=== PATIENT | male | born 1935 | race Caucasian/White ===

== ENCOUNTER 2016-07-14 08:38 | Inpatient (IN) | payer MEDICARE, OTHER ==
[2016-07-14] MEDS ORDERED: Nitroglycerin 0.4 MG Tab.SL SL PRN (12:52)
[2016-07-14] MEDS ORDERED: oxyCODONE 5 MG Tab PO PRN (12:52)
[2016-07-14] MEDS ORDERED: Benzonatate 100 MG Cap PO PRN (12:52)
[2016-07-14] MEDS ORDERED: Ipratropium 0.03% Nasal Spray 30 ML Bot NASBOTH PRN (12:52)
--- NOTE | 2016-07-14 13:01 | PCM.HP ---
H&P History of Present Illness - General Date of Service: 07/14/16 Admit Problem/Dx: Admission Diagnosis/Problem Admission Diagnosis/Problem Total shoulder replacement Source of Information: Patient History Limitations: Reports: No limitations - History of Present Illness Initial Comments - Free Text/Narative: This is a 80-year-old male patient states he was traveling down south to visit his son in [place]. Groom and he tripped fell and broke his right humerus. He was transferred to [facility]. He had a right shoulder replacement. He was transferred here for PT/OT and strengthening. He has some discomfort in his right shoulder. He has no concerns today. He denies chest pain, shortness of breath. The nurses report that his perineum is erythematous because he has been soiling himself and [place]. He also has bruising down his left side. - Related Data Allergies/Adverse Reactions: Allergies Allergy/AdvReac Type Severity Reaction Status Date / Time cephalexin monohydrate Allergy Edema Verified 01/01/16 15:30 [From Keflex] ciprofloxacin Allergy Edema Verified 01/01/16 15:30 doxycycline Allergy Edema Verified 01/01/16 15:30 doxycycline calcium Allergy Edema Verified 01/01/16 15:30 [From Vibramycin] doxycycline hyclate Allergy Edema Verified 01/01/16 15:30 [From Vibramycin] doxycycline monohydrate Allergy Edema Verified 01/01/16 15:30 [From Vibramycin] oxytetracycline Allergy Edema Verified 01/01/16 15:30 [From Terramycin] oxytetracycline HCl Allergy Edema Verified 01/01/16 15:30 [From Terramycin] Penicillins Allergy Swollen Verified 01/01/16 15:30 Tongue Sulfa (Sulfonamide Allergy Edema Verified 01/01/16 15:30 Antibiotics) tetracycline [Tetracycline] Allergy Cannot Verified 01/01/16 15:30 Remember Home Medications: Home Meds Acetaminophen [Tylenol Extra Strength] 1,000 mg PO TID PRN 01/17/13 [History] Furosemide 40 mg PO BID@08,16 01/17/13 [History] Multivitamin [Daily Multiple Vitamin] 1 tab PO DAILY 01/17/13 [History] Omeprazole [Prilosec] 20 mg PO DAILY@1100 01/17/13 [History] Tamsulosin HCl [Flomax] 0.4 mg PO BEDTIME 01/17/13 [History] Magnesium Oxide [Magnesium] 400 mg PO DAILY 11/09/13 [History] Cholecalciferol (Vitamin D3) [Vitamin D3] 4,000 unit PO DAILY 03/22/14 [History] Citalopram [Citalopram HBr] 20 mg PO QPM 03/22/14 [History] Clopidogrel [Plavix] 75 mg PO DAILY 03/22/14 [History] Fish Oil/[place]-3 Fatty Acids [Fish Oil 1,000 MG] 2,000 mg PO TID@,, [History] Isosorbide Mononitrate [Imdur] 30 mg PO DAILY 03/22/14 [History] Nitroglycerin 0.4 mg PO Q5M PRN 03/22/14 [History] Aspirin [Ecotrin] 81 mg PO DAILY 09/30/14 [History] Benzonatate [Tessalon [place]] 100 mg PO TID PRN 09/30/14 [History] Carvedilol [Coreg] 25 mg PO BID 09/30/14 [History] Mexiletine [Mexitil] 200 mg PO TID@,,01/01/16 [History] Simvastatin [Zocor] 40 mg PO BEDTIME 01/01/16 [History] guaiFENesin/Codeine Phosphate [Codeine-Guaifen 10-100 mg/5 ml] 10 ml PO Q6HR PRN 01/01/16 [History] Cetirizine [ZyrTEC] 10 mg PO BEDTIME 07/14/16 [History] Glimepiride [Amaryl] 1 mg PO DAILY 07/14/16 [History] Ipratropium [Atrovent 0.03% Nasal [place]] 2 spray NASBOTH BID PRN 07/14/16 [ History] Melatonin 3 mg PO BEDTIME 07/14/16 [History] oxyCODONE 5 mg PO Q4H PRN 07/14/16 [History] oxyCODONE 10 mg PO Q4H PRN 07/14/16 [History] Past Medical History HEENT History: Reports: Impaired vision Cardiovascular History: Reports: Bypass, Heart Failure, Stents Psychiatric History: Reports: Depression Endocrine/Metabolic History: Reports: Diabetes, type II Social & Family History - Family History Family Medical History: Noncontributory - Tobacco Use Smoking Status *Q: Former Smoker Years of Tobacco use: 30 Used Tobacco, but Quit: Yes Month Tobacco Last Used: YEARS AGO Second Hand Smoke Exposure: No - Caffeine Use Caffeine Use: Reports: Coffee - Alcohol Use Days Per Week of Alcohol Use: 0 Number of Drinks Per Day: 1 Total Drinks Per Week: 0 - Recreational Drug Use Recreational Drug Use: No H&P Review of Systems - Review of Systems: Review Of Systems: See Below General: Reports: no symptoms HEENT: Reports: no symptoms Pulmonary: Reports: No Symptoms Cardiovascular: Reports: no symptoms Gastrointestinal: Reports: No symptoms Genitourinary: Reports: other (Incontinence) Musculoskeletal: Reports: shoulder pain Psychiatric: Reports: no symptoms Neurological: Reports: No Symptoms Hematologic/Lymphatic: Reports: no symptoms Immunologic: Reports: no symptoms Exam - Exam Exam: See Below - Vital Signs Weight: 247 lb - Exam General: alert, oriented, cooperative HEENT: Hearing intact, Mucosa moist & pink, Posterior pharynx clear, Pupils equal, Pupils reactive, TMs clear Neck: supple, trachea midline Lungs: Clear to auscultation, Normal respiratory effort. No: Crackles, Rales, Rhonchi Cardiovascular: regular rate, regular rhythm, normal S1, normal S2. No: systolic murmur, diastolic murmur Abdomen: normal bowel sounds, soft. No: organomegaly, guarding, rigidity, rebound, tenderness Back Exam: normal inspection, full range of motion Extremities: other (Right shoulder is wrapped up and in a sling.) Skin: ecchymosis (Ecchymosis left abdomen and left leg) Neurological: normal speech, normal tone Neuro Extensive - Mental Status: alert, oriented x3, normal cognition Psychiatric: alert *Q Meaningful Use (ADM) - VTE *Q VTE Criteria *Q: - Stroke *Q Stroke Criteria *Q: - AMI *Q AMI Criteria *Q: - Problem List (1) Shoulder joint replacement status SNOMED Code(s): 646586447, 095044076 ICD Code: Z96.619 - PRESENCE OF UNSPECIFIED ARTIFICIAL SHOULDER JOINT Status: Acute Current Visit: Yes Problem List Initiated/Reviewed/Updated: Yes Orders Last 24hrs: Active Orders 24 hr Category Date Time Status Admission Status [Patient Status] [ADT] Routine ADT 07/14/16 11:10 Active Patient Status [ADT] Routine ADT 07/14/16 12:50 Ordered Accu Check [Blood Glucose Check, Bedside] [RC] BIDMEALS Care 07/14/16 12:55 Ordered Ambulate [RC] ASDIRECTED Care 07/14/16 12:50 Ordered May Shower [RC] ASDIRECTED Care 07/14/16 12:50 Ordered Oxygen Therapy [RC] PRN Care 07/14/16 12:50 Ordered Up With Assistance [RC] ASDIRECTED Care 07/14/16 12:50 Ordered Up to Chair [RC] ASDIRECTED Care 07/14/16 12:50 Ordered VTE/DVT Education [RC] Per Unit Routine Care 07/14/16 12:50 Ordered Vital Signs [RC] PER UNIT ROUTINE Care 07/14/16 12:50 Ordered OT Evaluation and Treatment [CONS] Routine Cons 07/14/16 12:50 Ordered PT Evaluation and Treatment [CONS] Routine Cons 07/14/16 12:50 Ordered Consistent Carbohydrate Diet [DIET] Diet 07/14/16 Dinner Ordered Acetaminophen [Tylenol Extra Strength] Med 07/14/16 12:52 Ordered 1,000 mg PO TID PRN Aspirin [Halfprin] Med 07/15/16 09:00 Ordered 81 mg PO DAILY Benzonatate [Tessalon Perles] Med 07/14/16 12:52 Ordered 100 mg PO TID PRN Carvedilol [Coreg] Med 07/14/16 21:00 Ordered 25 mg PO BID Cetirizine [ZyrTEC] Med 07/14/16 21:00 Ordered 10 mg PO BEDTIME Citalopram [Celexa] Med 07/14/16 17:00 Ordered 20 mg PO QPM Clopidogrel [Plavix] Med 07/15/16 09:00 Ordered 75 mg PO DAILY Fish Oil/[place]-3 Fatty Acids [Fish Oil] Med 07/14/16 16:00 Ordered 2 gm PO TID@08,16,21 Furosemide [Lasix] Med 07/14/16 16:00 Ordered 40 mg PO BID@08,16 Glimepiride [Amaryl] Med 07/15/16 09:00 Ordered 1 mg PO DAILY Ipratropium [Atrovent 0.03% Nasal [place]] Med 07/14/16 12:52 Ordered 2 spray NASBOTH BID PRN Isosorbide Mononitrate [Imdur] Med 07/15/16 09:00 Ordered 30 mg PO DAILY Magnesium Oxide [Magnesium] Med 07/15/16 09:00 Ordered 400 mg PO DAILY Melatonin Med 07/14/16 21:00 Ordered 3 mg PO BEDTIME Mexiletine [Mexiletine] Med 07/14/16 16:00 Ordered 200 mg PO TID@,,21 Multivitamins [Tab-A-Shelia] Med 07/15/16 09:00 Ordered 1 tab PO DAILY Nitroglycerin [Nitrostat] Med 07/14/16 12:52 Ordered 0.4 mg SL Q5M PRN Omeprazole Med 07/15/16 11:00 Ordered 20 mg PO DAILY@1100 Simvastatin [Zocor] Med 07/14/16 21:00 Ordered 40 mg PO BEDTIME Tamsulosin [Flomax] Med 07/14/16 21:00 Ordered 0.4 mg PO BEDTIME guaiFENesin/Codeine Phosphate [Codeine-Guaifen 10-100 Med 07/14/16 12:52 Ordered mg/5 ml] 10 ml PO Q6HR PRN oxyCODONE Med 07/14/16 12:52 Ordered 10 mg PO Q4H PRN oxyCODONE Med 07/14/16 12:52 Ordered 5 mg PO Q4H PRN Resuscitation Status Routine Resus Stat 07/14/16 12:50 Ordered Medication Orders Acetaminophen (Tylenol Extra Strength) 1,000 mg PO TID PRN PRN Reason: PAIN Aspirin (Halfprin) 81 mg PO DAILY [facility] Benzonatate (Tessalon Perles) 100 mg PO TID PRN PRN Reason: Cough Carvedilol (Coreg) 25 mg PO BID [facility] Cetirizine HCl (Zyrtec) 10 mg PO BEDTIME [facility] Citalopram Hydrobromide (Celexa) 20 mg PO QPM [facility] Clopidogrel Bisulfate (Plavix) 75 mg PO DAILY [facility] Fish Oil (Fish Oil) 2 gm PO TID@,,21 [facility] Furosemide (Lasix) 40 mg PO BID@,16 [facility] Glimepiride (Amaryl) 1 mg PO DAILY [facility] Ipratropium [place] (Atrovent 0.03% Nasal [place]) ml NASBOTH BID PRN PRN Reason: Rhinitis Isosorbide Mononitrate (Imdur) 30 mg PO DAILY [facility] Melatonin (Melatonin) 3 mg PO BEDTIME [facility] Multivitamins/Minerals/Vitamin C (Tab-A-Shelia) 1 tab PO DAILY [facility] Nitroglycerin (Nitrostat) 0.4 mg SL Q5M PRN PRN Reason: Chest Pain Non-Formulary Medication (Magnesium Oxide [Magnesium]) 400 mg PO DAILY [facility] Non-Formulary Medication (Mexiletine [Mexiletine]) 200 mg PO TID@08,16,21 [facility] Non-Formulary Medication (Guaifenesin/Codeine Phosphate [Codeine-Guaifen 10-100 Mg/5 Ml]) 10 ml PO Q6HR PRN PRN Reason: Cough Omeprazole (Omeprazole) 20 mg PO DAILY@1100 [facility] Oxycodone HCl (Oxycodone) 5 mg PO Q4H PRN PRN Reason: MODERATE PAIN Oxycodone HCl (Oxycodone) 10 mg PO Q4H PRN PRN Reason: SEVERE PAIN Simvastatin (Zocor) 40 mg PO BEDTIME [facility] Tamsulosin HCl (Flomax) 0.4 mg PO BEDTIME [facility] Assessment/Plan Comment:: 1. Admit to swing bed. 2. Continue his current medication. 3. Discussed CODE STATUS. He was to be a DO NOT RESUSCITATE/DO NOT INTUBATE. 4. PT/OT. See swing bed orders.
[2016-07-14] MEDS ORDERED: Codeine/guaiFENesin 100-10 MG/5 ML Syrup 5 ML Cup PO PRN (13:39)
[2016-07-14] MEDS: oxyCODONE 5 MG Tab PO PRN (13:46)
[2016-07-14] MEDS: Fish Oil/Omega-3 Fatty Acids 1 Gm Cap PO SCH ×2 (16:01→20:31)
[2016-07-14] MEDS: Furosemide 40 MG Tab PO SCH (16:02)
[2016-07-14] MEDS: MEXILETINE 200 MG PO SCH ×2 (16:02→20:32)
[2016-07-14] MEDS: Carvedilol 25 MG Tab PO SCH (20:27)
[2016-07-14] MEDS: Melatonin 3 MG Tab PO SCH (20:31)
[2016-07-14] MEDS: Simvastatin 40 MG Tab PO SCH (20:32)
[2016-07-15] MEDS: oxyCODONE 5 MG Tab PO PRN (00:14)
[2016-07-15] MEDS: Omeprazole 20 MG Cap.CR PO SCH (07:03)
[2016-07-15] MEDS: Multivitamin Tab PO SCH (08:07)
[2016-07-15] MEDS: Clopidogrel 75 MG Tab PO SCH (08:07)
[2016-07-15] MEDS: MEXILETINE 200 MG PO SCH ×2 (08:07→16:43)
[2016-07-15] MEDS: Furosemide 40 MG Tab PO SCH ×2 (08:08→16:42)
[2016-07-15] MEDS: Magnesium Oxide 400 MG Tab PO SCH (08:08)
[2016-07-15] MEDS: Isosorbide Mononitrate 30 MG Tab.ER PO SCH (08:09)
[2016-07-15] MEDS: Fish Oil/Omega-3 Fatty Acids 1 Gm Cap PO SCH ×3 (08:09→21:45)
[2016-07-15] MEDS: Carvedilol 25 MG Tab PO SCH ×2 (08:10→21:44)
[2016-07-15] MEDS: Glimepiride 2 MG Tab PO SCH (08:10)
[2016-07-15] MEDS: Aspirin 81 MG Tab.EC PO SCH (08:11)
[2016-07-15] MEDS: Acetaminophen/HYDROcodone 325-10 MG Tab PO PRN ×2 (13:21→21:46)
[2016-07-15] MEDS: Citalopram 20 MG Tab PO SCH (16:42)
[2016-07-15] MEDS: Tamsulosin 0.4 MG Cap.ER PO SCH (21:45)
[2016-07-15] MEDS: Melatonin 3 MG Tab PO SCH (21:46)
[2016-07-15] MEDS: Simvastatin 40 MG Tab PO SCH (21:46)
[2016-07-16] MEDS: oxyCODONE 5 MG Tab PO PRN ×2 (00:21→05:52)
[2016-07-16] MEDS: Omeprazole 20 MG Cap.CR PO SCH (05:52)
[2016-07-16] MEDS: Acetaminophen 500 MG Tab PO PRN ×2 (08:16→16:41)
[2016-07-16] MEDS: Carvedilol 25 MG Tab PO SCH ×2 (08:17→20:12)
[2016-07-16] MEDS: Glimepiride 2 MG Tab PO SCH (08:17)
[2016-07-16] MEDS: Aspirin 81 MG Tab.EC PO SCH (08:18)
[2016-07-16] MEDS: Isosorbide Mononitrate 30 MG Tab.ER PO SCH (08:18)
[2016-07-16] MEDS: Fish Oil/Omega-3 Fatty Acids 1 Gm Cap PO SCH ×3 (08:18→20:13)
[2016-07-16] MEDS: Clopidogrel 75 MG Tab PO SCH (08:19)
[2016-07-16] MEDS: Magnesium Oxide 400 MG Tab PO SCH (08:19)
[2016-07-16] MEDS: Furosemide 40 MG Tab PO SCH ×2 (08:19→16:05)
[2016-07-16] MEDS: Multivitamin Tab PO SCH (08:20)
[2016-07-16] MEDS: traMADol 50 MG Tab PO PRN ×2 (09:42→19:48)
--- NOTE | 2016-07-16 12:33 | CR ---
INDICATION: Left knee pain and swelling. Bruising after a fall. LEFT KNEE: Frontal and lateral views of the left knee were obtained, revealing marked soft tissue swelling anterior to the patella. A hematoma is possible in that area. Degenerative changes are noted at the patellofemoral and femorotibial joint spaces with hypertrophic lipping at the intercondylar spines, intercondylar notch, and laterally and medially off the femur and tibia. Moderately severe loss of medial femorotibial joint space is noted medially. A definite joint effusion was not seen. A definite fracture or dislocation was not seen. IMPRESSION: 1. Osteoarthritis. 2. Possible hematoma anterior to the patella with fairly marked soft tissue swelling in that area. This could be confirmed by ultrasound as necessary. MTDD
--- NOTE | 2016-07-16 12:53 | PN ---
DATE SEEN: 07/16/2016 SUBJECTIVE: This is an 81-year-old male with a previous historyof right humerus fracture and resultant right shoulder replacement after a fall, coronary artery disease with previous coronary artery stenting, complicated by cardiomyopathy with pacemaker and implantable defibrillator placement, obstructive sleep apnea, hypertension, obesity, and type 2 diabetes. He is seen today for followup. He was admitted as a transfer from [facility] on 07/14/2016 for continued rehab and strengthening. Today, he was seen and complains of significant left knee and leg pain. He is also complaining of increased numbness of his right upper extremity. He has had no fever, no chills. He denies any cough, hemoptysis, nausea, vomiting, or diarrhea. They have had difficulty with his pain medications. His appetite has been poor with the narcotics. He was quite sedated with the oxycodone. He has been switched to hydrocodone when he says it has offered only minimal pain relief, and he was wondering if he could get something else. He denies any abdominal discomfort or constipation. He has had no dysuria or hematuria. MEDICATIONS: Reviewed, all of which were accurate. ALLERGIES: Reviewed, all of which were accurate. OBJECTIVE: GENERAL: He appears to be in no acute distress. VITAL SIGNS: Blood pressure 113/52, pulse is 60 and regular, respirations are 20, O2 saturation on room air is 97%. HEENT: Exam was unremarkable, although, he appears somewhat pale. NECK: There is no jugular venous distention. CHEST: Revealed no wheezes, rales, or rhonchi. CARDIOVASCULAR: Revealed a regular rhythm without murmur, rub, or gallop. ABDOMEN: Quite obese, but otherwise unremarkable. EXTREMITIES: The patient's right upper extremity is in a sling. He has significant edema of his right hand. He says he can feel the top of his hand, but it does feel numb. He is unable to extend his fingers on the right hand and is unable to extend his wrist. I asked him if this is new, and he says there was some weakness before, but he says now he is unable to move it. He has significant ecchymosis in the lateral aspect of the left leg with significant swelling in the prepatellar area of the left knee. Ecchymosis was noted there also. There is no calf tenderness and peripheral pulses were present and equal bilaterally. No ulcerations or areas of breakdown were identified. IMPRESSION: 1. Status post right humerus fracture with resultant open reduction and internal fixation of the right humerus. 2. History of type 2 diabetes mellitus. His fasting sugars have been under fair control. 3. Arteriosclerotic heart disease with previous history of coronary artery stenting, cardiomyopathy, and implantable defibrillator placement. 4. History of obstructive sleep apnea with obesity. 5. Left knee swelling with evidence of significant contusion and possible prepatellar bursitis. PLAN: We will obtain a CBC and panel-8 today. I would like to get x-rays of his left knee. I talked to the orthopedic surgeon regarding the possible evidence of a radial nerve compression and neuropathy possibly secondary to his surgery. At this point, watchful waiting was recommended. We will continue to monitor his blood sugars and depending on the results, we will proceed from there. /[id number] /ADRIAN
[2016-07-16] MEDS: Citalopram 20 MG Tab PO SCH (16:05)
[2016-07-16] MEDS: Docusate Sodium 100 MG Cap PO SCH (20:12)
[2016-07-16] MEDS: Tamsulosin 0.4 MG Cap.ER PO SCH (20:13)
[2016-07-16] MEDS: Melatonin 3 MG Tab PO SCH (20:14)
[2016-07-16] MEDS: Simvastatin 40 MG Tab PO SCH (20:14)
[2016-07-17] MEDS: traMADol 50 MG Tab PO PRN ×3 (02:00→12:33)
[2016-07-17] MEDS: Omeprazole 20 MG Cap.CR PO SCH (06:15)
[2016-07-17] MEDS: Glimepiride 2 MG Tab PO SCH (08:18)
[2016-07-17] MEDS: Carvedilol 25 MG Tab PO SCH ×2 (08:18→20:35)
[2016-07-17] MEDS: Docusate Sodium 100 MG Cap PO SCH ×2 (08:18→20:35)
[2016-07-17] MEDS: Aspirin 81 MG Tab.EC PO SCH (08:19)
[2016-07-17] MEDS: Isosorbide Mononitrate 30 MG Tab.ER PO SCH (08:19)
[2016-07-17] MEDS: Fish Oil/Omega-3 Fatty Acids 1 Gm Cap PO SCH ×3 (08:19→20:36)
[2016-07-17] MEDS: Multivitamin Tab PO SCH (08:20)
[2016-07-17] MEDS: Furosemide 40 MG Tab PO SCH ×2 (08:20→15:56)
[2016-07-17] MEDS: Clopidogrel 75 MG Tab PO SCH (08:20)
[2016-07-17] MEDS: Magnesium Oxide 400 MG Tab PO SCH (08:20)
--- NOTE | 2016-07-17 11:48 | PN ---
DATE SEEN: 07/17/2016 SUBJECTIVE: This 81-year-old gentleman is seen today for a followup of his right humerus fracture and contusion with prepatellar bursitis of the left leg and knee. X-rays done yesterday were negative for fracture and he switched his pain medicine over to tramadol. This apparently has been working very well. He has had no excessive sedation, denies any nausea, and he says he is getting good pain relief along with use of the Tylenol. His other medications were reviewed. ALLERGIES: Reviewed. OBJECTIVE: GENERAL: He is quite comfortable after his shower, no acute distress. VITAL SIGNS: Afebrile. Blood pressure 121/51, pulse is 60 and regular. HEENT: Unremarkable, although he is slightly pale. NECK: There is no jugular venous distention. CHEST: Clear. CARDIOVASCULAR: Revealed a normal S1 and S2 without murmur, rub, or gallop. ABDOMEN: Unremarkable except for obesity. EXTREMITIES: Unchanged. He still has some edema of his hand, although it is slightly improved. He still is unable to extend his wrist beyond neutral and has difficulty extending his fingers. There is a slight amount of decreased sensation over the dorsum of his forearm and hand. The swelling and ecchymosis along the prepatellar bursa of the left knee is unchanged maybe it is down just a slight amount. The tenderness seems to have improved and we are using an Jay wrap on this area. IMPRESSION: 1. Status post open reduction and internal fixation of the right humerus fracture after he had had a previous right total shoulder arthroplasty. 2. Contusion with prepatellar bursitis of the left knee. No evidence of fracture. 3. Type 2 diabetes mellitus. 4. Arteriosclerotic heart disease with previous history of cardiomyopathy and implantable defibrillator placement. 5. History of obstructive sleep apnea, currently on his CPAP. 6. Postoperative anemia with a hemoglobin of 10.1, currently doing fairly well. PLAN: At this point, I have recommended no changes. We will continue his current medications, encourage oral fluids, having continue the tramadol, use the Jay wrap for the leg, and increase his activity. I talked to Orthopedics about the possible radial neuropathy on the right arm. They said wait and watch and see if it does not improve. We will continue to monitor and address other difficulties as needed. /[id number] /ADRIAN
[2016-07-17] MEDS: Acetaminophen 500 MG Tab PO PRN (15:25)
[2016-07-17] MEDS: Citalopram 20 MG Tab PO SCH (15:56)
[2016-07-17] MEDS: Tamsulosin 0.4 MG Cap.ER PO SCH (20:36)
[2016-07-17] MEDS: Melatonin 3 MG Tab PO SCH (20:37)
[2016-07-17] MEDS: Simvastatin 40 MG Tab PO SCH (20:38)
[2016-07-18] MEDS: traMADol 50 MG Tab PO PRN ×5 (00:18→21:02)
[2016-07-18] MEDS: Omeprazole 20 MG Cap.CR PO SCH (05:45)
[2016-07-18] MEDS: Carvedilol 25 MG Tab PO SCH ×2 (08:41→20:38)
[2016-07-18] MEDS: Glimepiride 2 MG Tab PO SCH (08:41)
[2016-07-18] MEDS: Docusate Sodium 100 MG Cap PO SCH ×2 (08:41→20:36)
[2016-07-18] MEDS: Fish Oil/Omega-3 Fatty Acids 1 Gm Cap PO SCH ×3 (08:42→20:33)
[2016-07-18] MEDS: Aspirin 81 MG Tab.EC PO SCH (08:42)
[2016-07-18] MEDS: Isosorbide Mononitrate 30 MG Tab.ER PO SCH (08:42)
[2016-07-18] MEDS: Furosemide 40 MG Tab PO SCH ×2 (08:42→16:33)
[2016-07-18] MEDS: Clopidogrel 75 MG Tab PO SCH (08:43)
[2016-07-18] MEDS: Magnesium Oxide 400 MG Tab PO SCH (08:43)
[2016-07-18] MEDS: Multivitamin Tab PO SCH (08:43)
[2016-07-18] MEDS: Citalopram 20 MG Tab PO SCH (16:33)
[2016-07-18] MEDS: Simvastatin 40 MG Tab PO SCH (20:37)
[2016-07-18] MEDS: Tamsulosin 0.4 MG Cap.ER PO SCH (20:37)
[2016-07-18] MEDS: Melatonin 3 MG Tab PO SCH (20:38)
[2016-07-19] MEDS: Omeprazole 20 MG Cap.CR PO SCH (06:17)
[2016-07-19] MEDS: traMADol 50 MG Tab PO PRN (06:17)
[2016-07-19] MEDS: Glimepiride 2 MG Tab PO SCH (09:07)
[2016-07-19] MEDS: Docusate Sodium 100 MG Cap PO SCH ×2 (09:07→20:59)
[2016-07-19] MEDS: Carvedilol 25 MG Tab PO SCH ×2 (09:08→20:59)
[2016-07-19] MEDS: Aspirin 81 MG Tab.EC PO SCH (09:09)
[2016-07-19] MEDS: Isosorbide Mononitrate 30 MG Tab.ER PO SCH (09:09)
[2016-07-19] MEDS: Fish Oil/Omega-3 Fatty Acids 1 Gm Cap PO SCH ×3 (09:09→21:00)
[2016-07-19] MEDS: Furosemide 40 MG Tab PO SCH ×2 (09:10→15:49)
[2016-07-19] MEDS: Magnesium Oxide 400 MG Tab PO SCH (09:10)
[2016-07-19] MEDS: Clopidogrel 75 MG Tab PO SCH (09:11)
[2016-07-19] MEDS: Multivitamin Tab PO SCH (09:11)
[2016-07-19] MEDS: Citalopram 20 MG Tab PO SCH (15:48)
[2016-07-19] MEDS: Tamsulosin 0.4 MG Cap.ER PO SCH (20:59)
[2016-07-19] MEDS: Acetaminophen 500 MG Tab PO PRN (21:00)
[2016-07-19] MEDS: Melatonin 3 MG Tab PO SCH (21:00)
[2016-07-19] MEDS: Simvastatin 40 MG Tab PO SCH (21:00)
[2016-07-20] MEDS: Omeprazole 20 MG Cap.CR PO SCH (06:06)
[2016-07-20] MEDS: Glimepiride 2 MG Tab PO SCH (08:07)
[2016-07-20] MEDS: Docusate Sodium 100 MG Cap PO SCH ×2 (08:08→20:36)
[2016-07-20] MEDS: Carvedilol 25 MG Tab PO SCH ×2 (08:08→20:36)
[2016-07-20] MEDS: Fish Oil/Omega-3 Fatty Acids 1 Gm Cap PO SCH ×3 (08:09→20:36)
[2016-07-20] MEDS: Isosorbide Mononitrate 30 MG Tab.ER PO SCH (08:09)
[2016-07-20] MEDS: Aspirin 81 MG Tab.EC PO SCH (08:09)
[2016-07-20] MEDS: Furosemide 40 MG Tab PO SCH ×2 (08:10→16:42)
[2016-07-20] MEDS: Magnesium Oxide 400 MG Tab PO SCH (08:10)
[2016-07-20] MEDS: Clopidogrel 75 MG Tab PO SCH (08:11)
[2016-07-20] MEDS: Multivitamin Tab PO SCH (08:11)
[2016-07-20] MEDS: Citalopram 20 MG Tab PO SCH (16:42)
[2016-07-20] MEDS: Melatonin 3 MG Tab PO SCH (20:37)
[2016-07-20] MEDS: Simvastatin 40 MG Tab PO SCH (20:37)
[2016-07-20] MEDS: Tamsulosin 0.4 MG Cap.ER PO SCH (20:37)
[2016-07-20] MEDS: Acetaminophen 500 MG Tab PO PRN (22:55)
[2016-07-21] MEDS: Cetirizine 10 MG Tab PO PRN (01:19)
[2016-07-21] MEDS: Omeprazole 20 MG Cap.CR PO SCH (07:08)
[2016-07-21] MEDS: Glimepiride 2 MG Tab PO SCH (09:26)
[2016-07-21] MEDS: Docusate Sodium 100 MG Cap PO SCH ×2 (09:27→20:54)
[2016-07-21] MEDS: Carvedilol 25 MG Tab PO SCH ×2 (09:27→20:54)
[2016-07-21] MEDS: Fish Oil/Omega-3 Fatty Acids 1 Gm Cap PO SCH ×3 (09:28→20:55)
[2016-07-21] MEDS: Isosorbide Mononitrate 30 MG Tab.ER PO SCH (09:28)
[2016-07-21] MEDS: Aspirin 81 MG Tab.EC PO SCH (09:28)
[2016-07-21] MEDS: Furosemide 40 MG Tab PO SCH ×2 (09:29→17:01)
[2016-07-21] MEDS: Magnesium Oxide 400 MG Tab PO SCH (09:30)
[2016-07-21] MEDS: Clopidogrel 75 MG Tab PO SCH (09:30)
[2016-07-21] MEDS: Multivitamin Tab PO SCH (09:31)
[2016-07-21] MEDS ORDERED: Polyethylene Glycol 3350 Powder 17 GM Packet PO PRN (10:40)
[2016-07-21] MEDS: Acetaminophen 500 MG Tab PO PRN (12:12)
[2016-07-21] MEDS: Citalopram 20 MG Tab PO SCH (17:02)
--- NOTE | 2016-07-21 18:32 | CONS ---
DATE OF CONSULTATION: 07/21/2016 PROBLEM: Status post open reduction and internal fixation of right humeral shaft fracture. HISTORY OF PRESENT ILLNESS: This gentleman's family asked if I would follow him postop after his surgery in [place] at [facility]. I agreed to follow him and since he has been transferred to [facility] for postop recovery, I visited with him today. This gentleman had a fall on his right upper extremity. The patient also has a history of right total shoulder arthroplasty. The patient's fracture occurred distal to the humeral implant and therefore, his surgeon recommended open reduction and internal fixation with plating (operative report reveals no complications). In visiting with Dr. Fine the other day, was noted this gentleman had a radial nerve palsy. We discussed the radial nerve palsy and it was my conclusion to wait for at least 12 weeks before doing any nerve conduction velocity studies and continue observation as the radial nerve is very sensitive and sometimes retraction during surgery can produce a problem. If there is no improvement within 12 weeks, then the exploration of the fracture site and radial nerve should be carried out. It should be noted that, in visiting with the patient today, he states he was able to dorsiflex his wrist and extend his fingers prior to surgery. The gentleman states he was having moderate to significant pain at times in the shoulder and mid shaft to the humerus, otherwise no real problems. Objectively, today the incision is healing nicely. There is no significant drainage. There is no erythema. No evidence of infection. He has a good radial pulse and light touch sensation is intact and equal in all dermatomal areas including the superficial radial nerve. DIAGNOSTIC STUDIES: I reviewed his x-rays today and there was excellent alignment and fixation present. ASSESSMENT: 1. Status post closed humeral shaft fracture with concomitant shoulder arthroplasty. 2. Radial nerve neurapraxia. PLAN: Continue observation and conservative care for pain. I have visited with therapy to do some electrical stim a couple of times a week and to fit him with a radial nerve palsy wrist splint, so that he does not develop contractures in his wrist. We will visit again on Tuesday with the patient if he is still hospitalized, otherwise I will see him back in the clinic when he is convenient for him. /[id number] JANET/ADRIAN
[2016-07-21] MEDS: Tamsulosin 0.4 MG Cap.ER PO SCH (20:55)
[2016-07-21] MEDS: Melatonin 3 MG Tab PO SCH (20:56)
[2016-07-21] MEDS: Simvastatin 40 MG Tab PO SCH (20:57)
[2016-07-21] MEDS: traMADol 50 MG Tab PO PRN (20:58)
[2016-07-21] MEDS: Aluminum Hydroxide/Magnesium Hydroxide Susp 30 ML Cup PO PRN (21:31)
[2016-07-22] MEDS: Acetaminophen 500 MG Tab PO PRN ×3 (00:55→20:42)
[2016-07-22] MEDS: Cetirizine 10 MG Tab PO PRN ×2 (00:56→20:43)
[2016-07-22] MEDS: Omeprazole 20 MG Cap.CR PO SCH (07:00)
[2016-07-22] MEDS: Glimepiride 2 MG Tab PO SCH (09:02)
[2016-07-22] MEDS: Docusate Sodium 100 MG Cap PO SCH ×2 (09:03→20:39)
[2016-07-22] MEDS: Carvedilol 25 MG Tab PO SCH ×2 (09:03→20:40)
[2016-07-22] MEDS: Isosorbide Mononitrate 30 MG Tab.ER PO SCH (09:04)
[2016-07-22] MEDS: Fish Oil/Omega-3 Fatty Acids 1 Gm Cap PO SCH ×3 (09:04→20:40)
[2016-07-22] MEDS: Furosemide 40 MG Tab PO SCH ×2 (09:04→16:06)
[2016-07-22] MEDS: Aspirin 81 MG Tab.EC PO SCH (09:04)
[2016-07-22] MEDS: Magnesium Oxide 400 MG Tab PO SCH (09:05)
[2016-07-22] MEDS: Clopidogrel 75 MG Tab PO SCH (09:05)
[2016-07-22] MEDS: Multivitamin Tab PO SCH (09:05)
[2016-07-22] MEDS: traMADol 50 MG Tab PO PRN ×2 (09:12→14:38)
[2016-07-22] MEDS: Gabapentin 100 MG Cap PO SCH ×3 (12:47→20:42)
[2016-07-22] MEDS: Citalopram 20 MG Tab PO SCH (16:05)
[2016-07-22] MEDS: Tamsulosin 0.4 MG Cap.ER PO SCH (20:41)
[2016-07-22] MEDS: Melatonin 3 MG Tab PO SCH (20:41)
[2016-07-22] MEDS: Simvastatin 40 MG Tab PO SCH (20:42)
[2016-07-23] MEDS: Omeprazole 20 MG Cap.CR PO SCH (06:32)
[2016-07-23] MEDS: Fish Oil/Omega-3 Fatty Acids 1 Gm Cap PO SCH ×3 (08:55→21:13)
[2016-07-23] MEDS: Isosorbide Mononitrate 30 MG Tab.ER PO SCH (08:55)
[2016-07-23] MEDS: Glimepiride 2 MG Tab PO SCH (08:55)
[2016-07-23] MEDS: Docusate Sodium 100 MG Cap PO SCH ×2 (08:55→21:13)
[2016-07-23] MEDS: Aspirin 81 MG Tab.EC PO SCH (08:55)
[2016-07-23] MEDS: Carvedilol 25 MG Tab PO SCH ×2 (08:55→21:13)
[2016-07-23] MEDS: Furosemide 40 MG Tab PO SCH ×2 (08:56→16:37)
[2016-07-23] MEDS: Clopidogrel 75 MG Tab PO SCH (08:56)
[2016-07-23] MEDS: Gabapentin 100 MG Cap PO SCH ×3 (08:56→21:00)
[2016-07-23] MEDS: Multivitamin Tab PO SCH (08:56)
[2016-07-23] MEDS: Magnesium Oxide 400 MG Tab PO SCH (08:56)
[2016-07-23] MEDS: traMADol 50 MG Tab PO PRN (14:36)
[2016-07-23] MEDS: Citalopram 20 MG Tab PO SCH (16:37)
[2016-07-23] MEDS: Melatonin 3 MG Tab PO SCH (21:13)
[2016-07-23] MEDS: Tamsulosin 0.4 MG Cap.ER PO SCH (21:13)
[2016-07-23] MEDS: Simvastatin 40 MG Tab PO SCH (21:14)
[2016-07-24] MEDS: Gabapentin 100 MG Cap PO SCH ×4 (06:22→21:17)
[2016-07-24] MEDS: Omeprazole 20 MG Cap.CR PO SCH (06:26)
[2016-07-24] MEDS: Carvedilol 25 MG Tab PO SCH ×2 (08:17→21:17)
[2016-07-24] MEDS: Docusate Sodium 100 MG Cap PO SCH ×2 (08:17→21:46)
[2016-07-24] MEDS: Glimepiride 2 MG Tab PO SCH (08:17)
[2016-07-24] MEDS: Aspirin 81 MG Tab.EC PO SCH (08:18)
[2016-07-24] MEDS: Fish Oil/Omega-3 Fatty Acids 1 Gm Cap PO SCH ×3 (08:18→21:17)
[2016-07-24] MEDS: Isosorbide Mononitrate 30 MG Tab.ER PO SCH (08:18)
[2016-07-24] MEDS: Furosemide 40 MG Tab PO SCH ×2 (08:19→15:58)
[2016-07-24] MEDS: Clopidogrel 75 MG Tab PO SCH (08:19)
[2016-07-24] MEDS: Multivitamin Tab PO SCH (08:19)
[2016-07-24] MEDS: Magnesium Oxide 400 MG Tab PO SCH (08:19)
[2016-07-24] MEDS: traMADol 50 MG Tab PO PRN ×2 (12:40→21:18)
[2016-07-24] MEDS: Citalopram 20 MG Tab PO SCH (15:59)
[2016-07-24] MEDS: Acetaminophen 500 MG Tab PO PRN (16:03)
[2016-07-24] MEDS: Tamsulosin 0.4 MG Cap.ER PO SCH (21:17)
[2016-07-24] MEDS: Melatonin 3 MG Tab PO SCH (21:17)
[2016-07-24] MEDS: Simvastatin 40 MG Tab PO SCH (21:18)
[2016-07-25] MEDS: Cetirizine 10 MG Tab PO PRN (00:38)
[2016-07-25] MEDS: Omeprazole 20 MG Cap.CR PO SCH (06:08)
[2016-07-25] MEDS: Furosemide 40 MG Tab PO SCH ×2 (09:55→15:20)
[2016-07-25] MEDS: Carvedilol 25 MG Tab PO SCH ×2 (09:55→21:04)
[2016-07-25] MEDS: Gabapentin 100 MG Cap PO SCH ×3 (09:55→21:08)
[2016-07-25] MEDS: Multivitamin Tab PO SCH (09:55)
[2016-07-25] MEDS: Clopidogrel 75 MG Tab PO SCH (09:55)
[2016-07-25] MEDS: Magnesium Oxide 400 MG Tab PO SCH (09:55)
[2016-07-25] MEDS: Glimepiride 2 MG Tab PO SCH (09:56)
[2016-07-25] MEDS: Isosorbide Mononitrate 30 MG Tab.ER PO SCH (09:56)
[2016-07-25] MEDS: Docusate Sodium 100 MG Cap PO SCH ×2 (09:56→21:04)
[2016-07-25] MEDS: Aspirin 81 MG Tab.EC PO SCH (09:56)
[2016-07-25] MEDS: Fish Oil/Omega-3 Fatty Acids 1 Gm Cap PO SCH ×3 (10:03→21:07)
[2016-07-25] MEDS: traMADol 50 MG Tab PO PRN (11:51)
[2016-07-25] MEDS: Acetaminophen 500 MG Tab PO PRN (15:19)
[2016-07-25] MEDS: Citalopram 20 MG Tab PO SCH (15:20)
[2016-07-25] MEDS ORDERED: Aluminum Hydroxide/Magnesium Hydroxide Susp 30 ML Cup PO PRN (18:36)
[2016-07-25] MEDS: Aluminum Hydroxide/Magnesium Hydroxide Susp 30 ML Cup PO PRN ×2 (19:36→23:13)
[2016-07-25] MEDS: Melatonin 3 MG Tab PO SCH (21:07)
[2016-07-25] MEDS: Tamsulosin 0.4 MG Cap.ER PO SCH (21:07)
[2016-07-25] MEDS: Simvastatin 40 MG Tab PO SCH (21:08)
[2016-07-26] MEDS: Omeprazole 20 MG Cap.CR PO SCH (06:30)
--- NOTE | 2016-07-26 07:43 | PCM.PN ---
- General Info Date of Service: 07/25/16 Subjective Update: Patient states that his right arm feels good sometimes and hurts sometimes. He denies chest pain, shortness of breath, fevers or chills. - Patient Data Vitals - most recent: Last Vital Signs Temp 98.8 F 07/25/16 09:30 Pulse 62 07/25/16 21:04 Resp 18 07/25/16 09:30 BP 101/43 L 07/25/16 21:04 Pulse Ox 97 07/25/16 12:00 Weight - most recent: 269 lb 4.8 oz I&O - last 24 hours: Intake & Output 07/25/16 07/26/16 07/26/16 22:59 06:59 14:59 Output Total 225 Balance -225 Lab Results last 24 hrs: Laboratory Results - last 24 hr 07/25/16 07/26/16 Range/Units 17:58 06:35 POC Glucose 125 H 103 (80-116) mg/dL Med Orders - Current: Current Medications Acetaminophen (Tylenol Extra Strength) 1,000 mg PO TID PRN PRN Reason: PAIN Last Admin: 07/25/16 15:19 Dose: 1,000 mg Al Hydroxide/Mg Hydroxide (Mag-Al Susp) 15 ml PO Q2H PRN PRN Reason: antacid Last Admin: 07/25/16 23:13 Dose: 15 ml Al Hydroxide/Mg Hydroxide (Mag-Al Susp) 30 ml PO Q2H PRN PRN Reason: antacid Last Admin: 07/21/16 21:31 Dose: 30 ml Aspirin (Halfprin) 81 mg PO DAILY [facility] Last Admin: 07/25/16 09:56 Dose: 81 mg Benzonatate (Tessalon Perles) 100 mg PO TID PRN PRN Reason: Cough Carvedilol (Coreg) 25 mg PO BID [facility] Last Admin: 07/25/16 21:04 Dose: 25 mg Cetirizine HCl (Zyrtec) 10 mg PO BEDTIME PRN PRN Reason: SLEEP Last Admin: 07/25/16 00:38 Dose: 10 mg Citalopram Hydrobromide (Celexa) 20 mg PO DAILY@1600 [facility] Last Admin: 07/25/16 15:20 Dose: 20 mg Clopidogrel Bisulfate (Plavix) 75 mg PO DAILY [facility] Last Admin: 07/25/16 09:55 Dose: 75 mg Docusate Sodium (Colace) 100 mg PO BID [facility] Last Admin: 07/25/16 21:04 Dose: 100 mg Fish Oil (Fish Oil) 2 gm PO TID@0900,1600,2100 [facility] Last Admin: 07/25/16 21:07 Dose: Not Given Furosemide (Lasix) 40 mg PO BID@0900,1600 [facility] Last Admin: 07/25/16 15:20 Dose: 40 mg Gabapentin (Neurontin) 100 mg PO TID [facility] Last Admin: 07/25/16 21:08 Dose: 100 mg Glimepiride (Amaryl) 1 mg PO DAILY [facility] Last Admin: 07/25/16 09:56 Dose: 1 mg Ipratropium [place] (Atrovent 0.03% Nasal [place]) 0 ml NASBOTH BID PRN PRN Reason: Rhinitis Isosorbide Mononitrate (Imdur) 30 mg PO DAILY [facility] Last Admin: 07/25/16 09:56 Dose: 30 mg Magnesium Oxide (Magnesium Oxide) 400 mg PO DAILY [facility] Last Admin: 07/25/16 09:55 Dose: 400 mg Melatonin (Melatonin) 3 mg PO BEDTIME [facility] Last Admin: 07/25/16 21:07 Dose: 3 mg Mexiletine HCl (Mexitil) 200 mg PO TID@0900,1600,2100 [facility] Last Admin: 07/25/16 21:08 Dose: 200 mg Multivitamins/Minerals/Vitamin C (Tab-A-Shelia) 1 tab PO DAILY [facility] Last Admin: 07/25/16 09:55 Dose: 1 tab Nitroglycerin (Nitrostat) 0.4 mg SL Q5M PRN PRN Reason: Chest Pain Omeprazole (Omeprazole) 20 mg PO DAILY@0600 [facility] Last Admin: 07/26/16 06:30 Dose: 20 mg Polyethylene Glycol (Miralax) 17 gm PO Q72H PRN PRN Reason: Constipation Simvastatin (Zocor) 40 mg PO BEDTIME [facility] Last Admin: 07/25/16 21:08 Dose: 40 mg Tamsulosin HCl (Flomax) 0.4 mg PO BEDTIME [facility] Last Admin: 07/25/16 21:07 Dose: 0.4 mg Tramadol HCl (Ultram) 50 mg PO Q4H PRN PRN Reason: Pain Last Admin: 07/25/16 11:51 Dose: 50 mg Discontinued Medications Hydrocodone Bitart/Acetaminophen ([place] 325-10 Mg) 1 tab PO Q4H PRN PRN Reason: Pain Stop: 07/16/16 08:00 Last Admin: 07/15/16 21:46 Dose: 1 tab Al Hydroxide/Mg Hydroxide (Mag-Al Susp) 15 ml PO Q2H PRN PRN Reason: Heartburn Guaifenesin/Codeine Phosphate (Robitussin Ac) 10 ml PO Q6H PRN PRN Reason: Cough Mexiletine 200 Mg * (Ptom) 200 mg PO TID@0900,1600,2100 [facility] Last Admin: 07/15/16 16:43 Dose: 200 mg Oxycodone HCl (Oxycodone) 5 mg PO Q4H PRN PRN Reason: MODERATE PAIN Last Admin: 07/15/16 07:02 Dose: 5 mg Oxycodone HCl (Oxycodone) 10 mg PO Q4H PRN PRN Reason: SEVERE PAIN Last Admin: 07/15/16 00:14 Dose: 10 mg Oxycodone HCl (Oxycodone) 10 mg PO Q4H PRN PRN Reason: Pain (moderate 4-6) Stop: 07/16/16 08:00 Oxycodone HCl (Oxycodone) 10 mg PO Q4H PRN PRN Reason: Pain (moderate 4-6) Stop: 07/16/16 08:00 Last Admin: 07/16/16 05:52 Dose: 10 mg Tramadol HCl (Ultram) 50 mg PO Q6H PRN PRN Reason: Pain Last Admin: 07/17/16 08:14 Dose: 50 mg - Exam General: alert, oriented, cooperative Lungs: Clear to auscultation, Normal respiratory effort Cardiovascular: Regular Rate, Regular Rhythm, No Murmurs Extremities: no edema, other (Right arm in sling.) - Problem List & Annotations (1) Shoulder joint replacement status SNOMED Code(s): 838865672, 528295434 Code(s): Z96.619 - PRESENCE OF UNSPECIFIED ARTIFICIAL SHOULDER JOINT Status : Deleted Current Visit: Yes - Problem List Review Problem List Initiated/Reviewed/Updated: Yes - Plan Plan:: 1. continue current care. 2. PT/OT
[2016-07-26] MEDS: Aluminum Hydroxide/Magnesium Hydroxide Susp 30 ML Cup PO PRN ×4 (08:44→21:44)
[2016-07-26] MEDS: Isosorbide Mononitrate 30 MG Tab.ER PO SCH (08:47)
[2016-07-26] MEDS: Glimepiride 2 MG Tab PO SCH (08:47)
[2016-07-26] MEDS: Carvedilol 25 MG Tab PO SCH ×2 (08:47→20:59)
[2016-07-26] MEDS: Fish Oil/Omega-3 Fatty Acids 1 Gm Cap PO SCH ×3 (08:47→21:00)
[2016-07-26] MEDS: Aspirin 81 MG Tab.EC PO SCH (08:47)
[2016-07-26] MEDS: Docusate Sodium 100 MG Cap PO SCH ×2 (08:47→20:59)
[2016-07-26] MEDS: Furosemide 40 MG Tab PO SCH ×2 (08:48→15:49)
[2016-07-26] MEDS: Magnesium Oxide 400 MG Tab PO SCH (08:48)
[2016-07-26] MEDS: Multivitamin Tab PO SCH (08:48)
[2016-07-26] MEDS: Gabapentin 100 MG Cap PO SCH ×3 (08:48→21:00)
[2016-07-26] MEDS: Clopidogrel 75 MG Tab PO SCH (08:48)
[2016-07-26] MEDS: traMADol 50 MG Tab PO PRN ×3 (11:01→22:35)
--- NOTE | 2016-07-26 12:32 | CR ---
INDICATION: Status post open reduction and internal fixation right proximal humerus. RIGHT HUMERUS, 3 VIEWS: AP and lateral of the right humerus reveals internal fixation to be well maintained. The fracture is reduced anatomically. Fracture line still visible in the mid shaft of the humerus. MTDD
[2016-07-26] MEDS: Acetaminophen 500 MG Tab PO PRN (13:26)
[2016-07-26] MEDS: Citalopram 20 MG Tab PO SCH (15:48)
[2016-07-26] MEDS: Simvastatin 40 MG Tab PO SCH (21:00)
[2016-07-26] MEDS: Melatonin 3 MG Tab PO SCH (21:00)
[2016-07-26] MEDS: Tamsulosin 0.4 MG Cap.ER PO SCH (21:00)
[2016-07-26] MEDS: Cetirizine 10 MG Tab PO PRN (22:35)
[2016-07-27] MEDS: Omeprazole 20 MG Cap.CR PO SCH (05:49)
[2016-07-27] MEDS: Furosemide 40 MG Tab PO SCH (08:31)
[2016-07-27] MEDS: Gabapentin 100 MG Cap PO SCH (08:31)
[2016-07-27] MEDS: Magnesium Oxide 400 MG Tab PO SCH (08:31)
[2016-07-27] MEDS: Docusate Sodium 100 MG Cap PO SCH (08:31)
[2016-07-27] MEDS: Glimepiride 2 MG Tab PO SCH (08:31)
[2016-07-27] MEDS: Carvedilol 25 MG Tab PO SCH (08:31)
[2016-07-27] MEDS: Clopidogrel 75 MG Tab PO SCH (08:31)
[2016-07-27] MEDS: Multivitamin Tab PO SCH (08:31)
[2016-07-27] MEDS: Fish Oil/Omega-3 Fatty Acids 1 Gm Cap PO SCH (08:32)
[2016-07-27] MEDS: Isosorbide Mononitrate 30 MG Tab.ER PO SCH (08:32)
[2016-07-27] MEDS: Aspirin 81 MG Tab.EC PO SCH (08:32)
[2016-07-27 08:34] VITALS: BP 110/57
--- NOTE | 2016-07-27 08:58 | PCM.DCSUM1 ---
Discharge Summary - Hospital Course Free Text/Narrative:: Swing bed hospital course. Patient was transferred down here from [facility] after having an right total shoulder replacement. This was for rehabilitation course. Patient initially came down oxycodone and his pain med was changed,. He was very sedated from oxycodone. He had PT/OT and progressed very slowly. His diabetes was controlled well at this year. He had no other issues other than his shoulder. After working with them they didn't feel he can go home so they will transfer him to [facility] for further PT/OT. Brief History: This is a 80-year-old male patient states he was traveling down south to visit his son in [place]. [place] and he tripped fell and broke his right humerus. He was transferred to [facility]. He had a right shoulder replacement. He was transferred here for PT/OT and strengthening. He has some discomfort in his right shoulder. He has no concerns today. He denies chest pain, shortness of breath. The nurses report that his perineum is erythematous because he has been soiling himself and [place]. He also has bruising down his left side. - Discharge Data Discharge Date: 07/27/16 Discharge Disposition: DC/Tfer to [facility] Condition: Good - Discharge Diagnosis/Problem(s) (1) Shoulder joint replacement status SNOMED Code(s): 142290835, 152516996 ICD Code: Z96.619 - PRESENCE OF UNSPECIFIED ARTIFICIAL SHOULDER JOINT Status: Deleted Current Visit: Yes - Patient Summary/Data Consults: Consultations 07/14/16 12:50 OT Evaluation and Treatment [CONS] Routine Please Evaluate and Treat. OT Reason for Consult: Strengthening This query below is only for informational purposes and is not editable. Admission Diagnosis/Problem: Total shoulder replacement PT Evaluation and Treatment [CONS] Routine Please Evaluate and Treat. PT Reason for Consult: Strengthening This query below is only for informational purposes and is not editable. Admission Diagnosis/Problem: Total shoulder replacement - Patient Instructions Diet: Diabetic Diet Activity: As Tolerated Driving: Do Not Drive Showering/Bathing: May Shower Notify Provider of: Fever, Increased Pain Other/Special Instructions: PT/OT - Discharge Plan Prescriptions/Med Rec: traMADol [Ultram] 50 mg PO Q4H PRN #60 tablet PRN Reason: Pain Home Medications: Home Meds Acetaminophen [Tylenol Extra Strength] 1,000 mg PO TID PRN 01/17/13 [History] Furosemide 40 mg PO BID@,01/17/13 [History] Multivitamin [Daily Multiple Vitamin] 1 tab PO DAILY 01/17/13 [History] Omeprazole [Prilosec] 20 mg PO DAILY@1100 01/17/13 [History] Tamsulosin HCl [Flomax] 0.4 mg PO BEDTIME 01/17/13 [History] Magnesium Oxide [Magnesium] 400 mg PO DAILY 11/09/13 [History] Cholecalciferol (Vitamin D3) [Vitamin D3] 4,000 unit PO DAILY 03/22/14 [History] Citalopram [Citalopram HBr] 20 mg PO QPM 03/22/14 [History] Clopidogrel [Plavix] 75 mg PO DAILY 03/22/14 [History] Fish Oil/[place]-3 Fatty Acids [Fish Oil 1,000 MG] 2,000 mg PO TID@,, [History] Isosorbide Mononitrate [Imdur] 30 mg PO DAILY 03/22/14 [History] Nitroglycerin 0.4 mg PO Q5M PRN 03/22/14 [History] Aspirin [Ecotrin] 81 mg PO DAILY 09/30/14 [History] Benzonatate [Tessalon Perle] 100 mg PO TID PRN 09/30/14 [History] Carvedilol [Coreg] 25 mg PO BID 09/30/14 [History] Mexiletine 200 mg PO TID@,,01/01/16 [History] Simvastatin [Zocor] 40 mg PO BEDTIME 01/01/16 [History] Cetirizine [ZyrTEC] 10 mg PO BEDTIME 07/14/16 [History] Glimepiride [Amaryl] 1 mg PO DAILY 07/14/16 [History] Ipratropium [Atrovent 0.03% Nasal [place]] 2 spray NASBOTH BID PRN 07/14/16 [ History] Melatonin 3 mg PO BEDTIME 07/14/16 [History] traMADol [Ultram] 50 mg PO Q4H PRN #60 tablet 07/27/16 [Rx] - Discharge Summary/Plan Comment DC Time >30 min.: No - Patient Data Vitals - Most Recent: Last Vital Signs Temp 97.5 F 07/27/16 05:50 Pulse 57 L 07/27/16 08:31 Resp 18 07/27/16 05:50 BP 110/57 L 07/27/16 08:32 Pulse Ox 92 L 07/27/16 05:50 Weight - Most Recent: 269 lb 4.8 oz I&O - Last 24 hours: Intake & Output 07/26/16 07/27/16 07/27/16 22:59 06:59 14:59 Output Total 0 Balance 0 Lab Results - Last 24 hrs: Laboratory Results - last 24 hr 07/26/16 07/27/16 Range/Units 16:59 05:52 POC Glucose 168 H 109 (80-116) mg/dL Med Orders - Current: Current Medications Acetaminophen (Tylenol Extra Strength) 1,000 mg PO TID PRN PRN Reason: PAIN Last Admin: 07/26/16 13:26 Dose: 1,000 mg Al Hydroxide/Mg Hydroxide (Mag-Al Susp) 15 ml PO Q2H PRN PRN Reason: antacid Last Admin: 07/25/16 23:13 Dose: 15 ml Al Hydroxide/Mg Hydroxide (Mag-Al Susp) 30 ml PO Q2H PRN PRN Reason: antacid Last Admin: 07/26/16 21:44 Dose: 30 ml Aspirin (Halfprin) 81 mg PO DAILY [facility] Last Admin: 07/27/16 08:32 Dose: 81 mg Benzonatate (Tessalon Perles) 100 mg PO TID PRN PRN Reason: Cough Carvedilol (Coreg) 25 mg PO BID [facility] Last Admin: 07/27/16 08:31 Dose: 25 mg Cetirizine HCl (Zyrtec) 10 mg PO BEDTIME PRN PRN Reason: SLEEP Last Admin: 07/26/16 22:35 Dose: 10 mg Citalopram Hydrobromide (Celexa) 20 mg PO DAILY@1600 [facility] Last Admin: 07/26/16 15:48 Dose: 20 mg Clopidogrel Bisulfate (Plavix) 75 mg PO DAILY [facility] Last Admin: 07/27/16 08:31 Dose: 75 mg Docusate Sodium (Colace) 100 mg PO BID [facility] Last Admin: 07/27/16 08:31 Dose: 100 mg Fish Oil (Fish Oil) 2 gm PO TID@0900,1600,2100 [facility] Last Admin: 07/27/16 08:32 Dose: 2 gm Furosemide (Lasix) 40 mg PO BID@0900,1600 [facility] Last Admin: 07/27/16 08:31 Dose: 40 mg Gabapentin (Neurontin) 100 mg PO TID [facility] Last Admin: 07/27/16 08:31 Dose: 100 mg Glimepiride (Amaryl) 1 mg PO DAILY [facility] Last Admin: 07/27/16 08:31 Dose: 1 mg Ipratropium [place] (Atrovent 0.03% Nasal [place]) 0 ml NASBOTH BID PRN PRN Reason: Rhinitis Isosorbide Mononitrate (Imdur) 30 mg PO DAILY [facility] Last Admin: 07/27/16 08:32 Dose: 30 mg Magnesium Oxide (Magnesium Oxide) 400 mg PO DAILY [facility] Last Admin: 07/27/16 08:31 Dose: 400 mg Melatonin (Melatonin) 3 mg PO BEDTIME [facility] Last Admin: 07/26/16 21:00 Dose: 3 mg Mexiletine HCl (Mexitil) 200 mg PO TID@0900,1600,2100 [facility] Last Admin: 07/27/16 08:31 Dose: 200 mg Multivitamins/Minerals/Vitamin C (Tab-A-Shelia) 1 tab PO DAILY [facility] Last Admin: 07/27/16 08:31 Dose: 1 tab Nitroglycerin (Nitrostat) 0.4 mg SL Q5M PRN PRN Reason: Chest Pain Omeprazole (Omeprazole) 20 mg PO DAILY@0600 [facility] Last Admin: 07/27/16 05:49 Dose: 20 mg Polyethylene Glycol (Miralax) 17 gm PO Q72H PRN PRN Reason: Constipation Simvastatin (Zocor) 40 mg PO BEDTIME [facility] Last Admin: 07/26/16 21:00 Dose: 40 mg Tamsulosin HCl (Flomax) 0.4 mg PO BEDTIME [facility] Last Admin: 07/26/16 21:00 Dose: 0.4 mg Tramadol HCl (Ultram) 50 mg PO Q4H PRN PRN Reason: Pain Last Admin: 07/26/16 22:35 Dose: 50 mg Discontinued Medications Hydrocodone Bitart/Acetaminophen ([place] 325-10 Mg) 1 tab PO Q4H PRN PRN Reason: Pain Stop: 07/16/16 08:00 Last Admin: 07/15/16 21:46 Dose: 1 tab Al Hydroxide/Mg Hydroxide (Mag-Al Susp) 15 ml PO Q2H PRN PRN Reason: Heartburn Guaifenesin/Codeine Phosphate (Robitussin Ac) 10 ml PO Q6H PRN PRN Reason: Cough Mexiletine 200 Mg * (Ptom) 200 mg PO TID@0900,1600,2100 [facility] Last Admin: 07/15/16 16:43 Dose: 200 mg Oxycodone HCl (Oxycodone) 5 mg PO Q4H PRN PRN Reason: MODERATE PAIN Last Admin: 07/15/16 07:02 Dose: 5 mg Oxycodone HCl (Oxycodone) 10 mg PO Q4H PRN PRN Reason: SEVERE PAIN Last Admin: 07/15/16 00:14 Dose: 10 mg Oxycodone HCl (Oxycodone) 10 mg PO Q4H PRN PRN Reason: Pain (moderate 4-6) Stop: 07/16/16 08:00 Oxycodone HCl (Oxycodone) 10 mg PO Q4H PRN PRN Reason: Pain (moderate 4-6) Stop: 07/16/16 08:00 Last Admin: 07/16/16 05:52 Dose: 10 mg Tramadol HCl (Ultram) 50 mg PO Q6H PRN PRN Reason: Pain Last Admin: 07/17/16 08:14 Dose: 50 mg *Q Meaningful Use (DIS) - VTE *Q VTE Criteria *Q: - Stroke *Q Stroke Criteria *Q: - AMI *Q AMI Criteria *Q:
[2016-07-27] MEDS ORDERED: Tuberculin, PPD 5 Units/0.1 ML 1 ML MDV IDERM ONE (09:22)
[2016-07-27] MEDS: traMADol 50 MG Tab PO PRN (09:35)
[2016-07-27] MEDS: Acetaminophen 500 MG Tab PO PRN (10:21)
== END 2016-07-27 11:10 | DRG 560 ==
LOC: FB.MS 10:43
PROVIDERS: ADMIT Family Medicine; ATTEND Family Medicine
DX: S42.391D Other fracture of shaft of right humerus, subsequent encounter for fracture with routine healing (principal); I50.20 Unspecified systolic (congestive) heart failure; I42.9 Cardiomyopathy, unspecified; Z68.41 Body mass index [BMI] 40.0-44.9, adult; Z47.1 Aftercare following joint replacement surgery; Z96.611 Presence of right artificial shoulder joint; Z98.890 Other specified postprocedural states; W19.XXXD Unspecified fall, subsequent encounter; G56.31 Lesion of radial nerve, right upper limb; Z66 Do not resuscitate; E11.9 Type 2 diabetes mellitus without complications; I25.10 Atherosclerotic heart disease of native coronary artery without angina pectoris; G47.33 Obstructive sleep apnea (adult) (pediatric); Z95.0 Presence of cardiac pacemaker; Z87.891 Personal history of nicotine dependence; F32.9 Major depressive disorder, single episode, unspecified; Z95.5 Presence of coronary angioplasty implant and graft; H54.7 Unspecified visual loss; D64.9 Anemia, unspecified; E66.9 Obesity, unspecified; Z88.1 Allergy status to other antibiotic agents; Z88.0 Allergy status to penicillin; Z88.2 Allergy status to sulfonamides; Z79.82 Long term (current) use of aspirin; Z79.84 Long term (current) use of oral hypoglycemic drugs
CPT/HCPCS: 36415; 73060-RT; 73560-LT; 80048; 82962; 85025; 85027; 86580; 97110-GO; 97112-GO; 97162-GP; 97165-GO; 97530-GO-KX; 97530-GP; 97535-GO; 97542-GO; 97760-GO; A4217; A9270-GY